=== PATIENT | female | born 1955 | race Caucasian/White ===

== ENCOUNTER → 2016-10-11 | Outpatient (CLI) | payer OTHER | LOC: HEART 5 14:48 | DX: J44.9 Chronic obstructive pulmonary disease, unspecified (principal) | CPT/HCPCS: 94060; 94729 ==

== ENCOUNTER 2020-10-23 12:49 | Emergency (ER) | payer MEDICARE, OTHER ==
[~2020-10-23 12:49] MED LIST: ASPIR 8181 MG PO; CATAPRES 0.1MG0.1 MG PO; ECOTRIN81 MG PO; HYDROCODON-ACE1 EAC2 PO; IBU400 MG PO; KEFLEX CAP 500500 MG PO; LIPITOR TAB 2020 MG PO; NORCO 5-325 TA1 EACH PO; PRINIVIL20 MG PO; TRAMADOL HCL50 MG PO
[2020-10-23 14:07] LABS: HEMOGLOBIN 16.9 gm/dl (12.3-15.3); RED BLOOD COUNT 4.98 M/UL (4.00-5.10); WHITE BLOOD COUNT 8.8 K/UL (4.5-11.0)
[2020-10-23 14:37] LABS: BUN/CREATININE RATIO 22 (0-10)
[2020-10-23] MEDS ORDERED: OMNICEF 300 MG300 MG PO (18:11)
[2020-10-23] MEDS ORDERED: PROTONIX40 MG PO (18:11)
[2020-10-23] MEDS ORDERED: ZOFRAN4 MG PO (18:11)
== END 2020-10-23 19:41 | disposition home or self-care (01) ==
LOC: ER1 12:49
PROVIDERS: Physician Assistant Medical
DX: K20.90 Esophagitis, unspecified without bleeding (principal); F15.10 Other stimulant abuse, uncomplicated; J44.9 Chronic obstructive pulmonary disease, unspecified; I10 Essential (primary) hypertension; Z86.73 Personal history of transient ischemic attack (TIA), and cerebral infarction without residual deficits; F17.210 Nicotine dependence, cigarettes, uncomplicated; Z20.822 Contact with and (suspected) exposure to COVID-19
CPT/HCPCS: 36600; 70450; 71045; 80053; 80307; 81001; 82803; 83605; 83690; 85025; 87086; 93005; 96374; 96375; 99285; C9113; J0696; J7030; Q9967; U0002

== ENCOUNTER 2020-11-11 12:45 | Emergency (ER) | payer MEDICARE, OTHER ==
[~2020-11-11 12:45] MED LIST changes: +OMNICEF 300 MG300 MG PO; +PROTONIX40 MG PO; +ZOFRAN4 MG PO
[2020-11-11] MEDS ORDERED: AUGMENTIN 875-1 EACH PO (14:37)
[2020-11-11] MEDS ORDERED: LISINOPRIL20 MG PO (14:37)
[2020-11-11] MEDS ORDERED: MOBIC15 MG PO (14:37)
== END 2020-11-11 14:58 | disposition home or self-care (01) ==
LOC: ER1 12:45
DX: L03.113 Cellulitis of right upper limb (principal); Z76.0 Encounter for issue of repeat prescription; I10 Essential (primary) hypertension; F17.200 Nicotine dependence, unspecified, uncomplicated; Z79.899 Other long term (current) drug therapy; Z23 Encounter for immunization
CPT/HCPCS: 73110; 73130; 90471; 90715; 99283

== ENCOUNTER 2021-05-14 20:55 | Emergency (ER) | payer MEDICARE, OTHER ==
[~2021-05-14 20:55] MED LIST changes: +AUGMENTIN 875-1 EACH PO; +LISINOPRIL20 MG PO; +MOBIC15 MG PO
[2021-05-14 22:12] LABS: HEMOGLOBIN 16.4 gm/dl (12.3-15.3); RED BLOOD COUNT 4.94 M/UL (4.00-5.10); WHITE BLOOD COUNT 6.3 K/UL (4.5-11.0)
[2021-05-14 22:45] LABS: BUN/CREATININE RATIO 16 (0-10)
[2021-05-15] MEDS ORDERED: PROTONIX40 MG PO (03:12)
[2021-05-15] MEDS ORDERED: ZOFRAN4 MG PO (03:12)
[2021-05-15] MEDS ORDERED: BENTYL 20MG TAB20 MG PO (03:12)
== END 2021-05-15 03:30 | disposition home or self-care (01) ==
LOC: ER1 20:55
PROVIDERS: Physician Assistant Medical
DX: R06.02 Shortness of breath (principal); B34.9 Viral infection, unspecified; R05.9 Cough, unspecified; R10.9 Unspecified abdominal pain; I10 Essential (primary) hypertension; Z20.822 Contact with and (suspected) exposure to COVID-19; J44.9 Chronic obstructive pulmonary disease, unspecified; Z79.899 Other long term (current) drug therapy; F17.210 Nicotine dependence, cigarettes, uncomplicated
CPT/HCPCS: 70450; 71045; 80053; 80307; 81001; 82550; 82553; 83605; 83690; 83874; 84484; 85025; 93005; 96374; 96375; 99285; J2270; J2405; J2765; J7030; U0002

== ENCOUNTER 2021-09-09 16:52 | Inpatient (IN) | payer MEDICARE, OTHER ==
[~2021-09-09] VITALS: Ht 162.6 cm; Wt 54.4 kg
[~2021-09-09 16:52] MED LIST changes: +BENTYL 20MG TAB20 MG PO
[2021-09-09 17:33] LABS: HEMOGLOBIN 16.3 gm/dl (12.3-15.3); RED BLOOD COUNT 4.92 M/UL (4.00-5.10)
[2021-09-09 18:29] LABS: BUN/CREATININE RATIO 34 (0-10)
[2021-09-10 02:22] LABS: WHITE BLOOD COUNT 7.5 K/UL (4.5-11.0)
[2021-09-10 02:43] LABS: HEMOGLOBIN 12.6 gm/dl (12.3-15.3); RED BLOOD COUNT 3.86 M/UL (4.00-5.10)
[2021-09-10 03:20] LABS: BUN/CREATININE RATIO 38 (0-10)
[2021-09-10 12:46] LABS: BUN/CREATININE RATIO 31 (0-10)
--- NOTE | 2021-09-10 15:40 | NUR ---
PATIENT HAD NEAR FALL AFTER BEING UP TO CHAIR WITH PT, SHE SAID PT SAID IT WAS OK IF SHE GETS UP. I INSTRUCTED THE PATIENT TO PLEASE NOT GET UP WITHOUT CALLING ME OR THE TECH, YELLOW SOCKS AND GOWN ON PT, SHE IS DOUBLE BED ALARMED AND VERBALIZED UNDERSTANDING TO CALL BEFORE SHE ATTEMPTS TO GET UP.
[2021-09-11 07:09] LABS: BUN/CREATININE RATIO 16 (0-10)
--- NOTE | 2021-09-11 09:40 | NUR ---
PATIENT WAS SEEN TO BE ANXIUOS, TRYING TO CLIMB OUT OF BED. CALL PLACED TO DR CHOWDHURY REGARDING PATIENT CONDTION .WHILE ON PHONE WITH PATIENT PULLED ALL TELMETRY OFF. NEW ORDER RECEIVED AND IMPLEMNTED. AFTER MEDICATION ADMINISTRAION, PATIENT WENT UNRESPONSIVE, [employer] SALES REPRESENTATIVE CALLED AND PATIENT TRANSFERRED TO UNIT.
[2021-09-11 11:16] LABS: HBSAG SCREEN Negative (Negative); HEP A AB, IGM Negative (Negative); HEP B CORE AB, IGM Negative (Negative); HEP C VIRUS AB <0.1 (0.0-0.9)
[2021-09-11 13:25] LABS: HEMOGLOBIN 13.1 gm/dl (12.3-15.3); RED BLOOD COUNT 4.05 M/UL (4.00-5.10)
[2021-09-11 13:26] LABS: WHITE BLOOD COUNT 13.8 K/UL (4.5-11.0)
[2021-09-11 13:45] LABS: BUN/CREATININE RATIO 23 (0-10)
[2021-09-12 04:46] LABS: RED BLOOD COUNT 4.34 M/UL (4.00-5.10)
[2021-09-12 04:47] LABS: WHITE BLOOD COUNT 6.5 K/UL (4.5-11.0)
[2021-09-12 05:10] LABS: BUN/CREATININE RATIO 18 (0-10)
[2021-09-13 04:38] LABS: WHITE BLOOD COUNT 7.4 K/UL (4.5-11.0)
[2021-09-13 04:41] LABS: HEMOGLOBIN 11.7 gm/dl (12.3-15.3); RED BLOOD COUNT 3.59 M/UL (4.00-5.10)
[2021-09-14 02:04] LABS: HEMOGLOBIN 11.4 gm/dl (12.3-15.3); RED BLOOD COUNT 3.47 M/UL (4.00-5.10); WHITE BLOOD COUNT 6.8 K/UL (4.5-11.0)
[2021-09-14 02:35] LABS: BUN/CREATININE RATIO 43 (0-10)
[2021-09-15 02:25] LABS: HEMOGLOBIN 11.3 gm/dl (12.3-15.3); RED BLOOD COUNT 3.44 M/UL (4.00-5.10); WHITE BLOOD COUNT 5.8 K/UL (4.5-11.0)
[2021-09-15 03:19] LABS: BUN/CREATININE RATIO 70 (0-10)
--- NOTE | 2021-09-15 09:03 | NUR ---
Patient put on sedation vacation and became increasingly aggitated. Patient was hypertensive ([id number]) and unable to follow commands. Dr. Calero has ordered precedex and stated to restart sedation medications until precedex drip arrives.
[2021-09-16 05:41] LABS: WHITE BLOOD COUNT 6.8 K/UL (4.5-11.0)
[2021-09-16 05:47] LABS: HEMOGLOBIN 13.3 gm/dl (12.3-15.3); RED BLOOD COUNT 4.05 M/UL (4.00-5.10)
[2021-09-16 05:52] LABS: BUN/CREATININE RATIO 102 (0-10)
[2021-09-16 16:38] LABS: BUN/CREATININE RATIO 102 (0-10)
[2021-09-17 05:05] LABS: HEMOGLOBIN 13.1 gm/dl (12.3-15.3); RED BLOOD COUNT 4.01 M/UL (4.00-5.10)
[2021-09-17 05:07] LABS: WHITE BLOOD COUNT 9.9 K/UL (4.5-11.0)
[2021-09-17 05:19] LABS: BUN/CREATININE RATIO 95 (0-10)
[2021-09-18 03:53] LABS: HEMOGLOBIN 12.6 gm/dl (12.3-15.3); RED BLOOD COUNT 3.83 M/UL (4.00-5.10)
[2021-09-18 04:08] LABS: BUN/CREATININE RATIO 77 (0-10)
[2021-09-19 04:42] LABS: HEMOGLOBIN 11.2 gm/dl (12.3-15.3); WHITE BLOOD COUNT 10.1 K/UL (4.5-11.0)
[2021-09-19 04:43] LABS: RED BLOOD COUNT 3.39 M/UL (4.00-5.10)
[2021-09-19 05:02] LABS: BUN/CREATININE RATIO 76 (0-10)
[2021-09-20 02:48] LABS: HEMOGLOBIN 13.1 gm/dl (12.3-15.3); WHITE BLOOD COUNT 12.2 K/UL (4.5-11.0)
[2021-09-20 02:55] LABS: RED BLOOD COUNT 3.96 M/UL (4.00-5.10)
[2021-09-20 02:57] LABS: BUN/CREATININE RATIO 53 (0-10)
[2021-09-21 04:51] LABS: HEMOGLOBIN 11.2 gm/dl (12.3-15.3); WHITE BLOOD COUNT 9.3 K/UL (4.5-11.0)
[2021-09-21 04:54] LABS: RED BLOOD COUNT 3.42 M/UL (4.00-5.10)
[2021-09-21 05:24] LABS: BUN/CREATININE RATIO 45 (0-10)
[2021-09-22 03:30] LABS: HEMOGLOBIN 10.3 gm/dl (12.3-15.3); RED BLOOD COUNT 3.12 M/UL (4.00-5.10); WHITE BLOOD COUNT 7.1 K/UL (4.5-11.0)
[2021-09-22 04:19] LABS: BUN/CREATININE RATIO 38 (0-10)
[2021-09-25 19:44] LABS: BUN/CREATININE RATIO 18 (0-10)
[2021-09-26 06:19] LABS: RED BLOOD COUNT 3.77 M/UL (4.00-5.10); WHITE BLOOD COUNT 6.8 K/UL (4.5-11.0)
[2021-09-26 06:29] LABS: HEMOGLOBIN 12.4 gm/dl (12.3-15.3)
[2021-09-26 06:47] LABS: BUN/CREATININE RATIO 17 (0-10)
--- NOTE | 2021-09-26 13:51 | NUR ---
[address] FUCHS OF PT C/O CP. GOT EKG, CARDIACS, GAVE THE PATIENT HER 1400 HYDRALIZINE SCHEDULED AND HER PRN CLONIDINE, GOT AN ORDER FOR SUBLINGUAL NITRO AND GAVE ONE TAB. PT STATED AT 1345 AFTER ALL THESE INTERVENTIONS COMPLETED THAT HER CHEST PAIN WAS RESOLVED. EKG NORMAL, GIVEN TO DR. FUCHS TO REVIEW.
[2021-09-26] MEDS ORDERED: IPRAT-ALBUT 0.5-3 ML NEB (19:17)
[2021-09-27] MEDS ORDERED: ADVAIR HFA 45/212 GM INH (15:48)
[2021-09-27] MEDS ORDERED: POLYETHYLENE GL17 GM PO (15:48)
[2021-09-27] MEDS ORDERED: HYGROTON TAB 2525 MG PO (15:48)
[2021-09-27] MEDS ORDERED: COZAAR50 MG PO (15:48)
--- NOTE | 2021-09-28 00:13 | NUR ---
APPROX 2215 WHEN ENTERING ROOM FOR [facility] PT HAD BOTH LEGS HANGING TO RIGHT SIDE OF BED AND HEAD WAS MORE OF LEFT SIDE OF BED ONTOP OF THE RAILING. GOT PT IN MORE COMFORTABLE POSITION. CHANGED BED ALARM TO MORE SENSITIVE SETTINGS AND PLACED RIGHT SIDE BOTTOM RAILING UP. PT KNOWS NAME AND , LOCATION. DOOR ALSO LEFT JAIL. WILL CONTINUE TO MONITOR PT. BED IS IN LOWEST POSITON. CALL LIGHT PLACE ON PT ABDOMEN.
--- NOTE | 2021-09-29 15:27 | NUR ---
report given to [facility] admitting nurse
== END 2021-09-29 16:56 | DRG 917 ==
LOC: ER1 16:52 → CDU 19:55 → M/S 19:55 → CCU 09-11 10:13 → M/S 09-11 11:04 → CCU 09-11 11:04 → M/S 09-21 11:42
PROVIDERS: Internal Medicine; Internal Medicine Pulmonary Disease; Preventive Medicine Occupational Medicine; ADMIT Internal Medicine
PROC: 04HY32Z Insertion of Monitoring Device into Lower Artery, Percutaneous Approach (ICD-10-PCS; principal; 2021-09-11)
PROC: B44LZZZ Ultrasonography of Femoral Artery (ICD-10-PCS; 2021-09-11)
PROC: 0BH17EZ Insertion of Endotracheal Airway into Trachea, Via Natural or Artificial Opening (ICD-10-PCS; 2021-09-11)
PROC: 5A1955Z Respiratory Ventilation, Greater than 96 Consecutive Hours (ICD-10-PCS; 2021-09-11)
PROC: 02HV33Z Insertion of Infusion Device into Superior Vena Cava, Percutaneous Approach (ICD-10-PCS; 2021-09-11)
PROC: B548ZZA Ultrasonography of Superior Vena Cava, Guidance (ICD-10-PCS; 2021-09-11)
PROC: 5A09357 Assistance with Respiratory Ventilation, Less than 24 Consecutive Hours, Continuous Positive Airway Pressure (ICD-10-PCS; 2021-09-11)
PROC: 3E043XZ Introduction of Vasopressor into Central Vein, Percutaneous Approach (ICD-10-PCS; 2021-09-11)
PROC: 0BH17EZ Insertion of Endotracheal Airway into Trachea, Via Natural or Artificial Opening (ICD-10-PCS; 2021-09-12)
PROC: 4A00X4Z Measurement of Central Nervous Electrical Activity, External Approach (ICD-10-PCS; 2021-09-16)
PROC: 5A0935A Assistance with Respiratory Ventilation, Less than 24 Consecutive Hours, High Flow/Velocity Cannula (ICD-10-PCS; 2021-09-18)
DX: T40.2X1A Poisoning by other opioids, accidental (unintentional), initial encounter (principal); J69.0 Pneumonitis due to inhalation of food and vomit; Z20.822 Contact with and (suspected) exposure to COVID-19; J96.21 Acute and chronic respiratory failure with hypoxia; R57.0 Cardiogenic shock; G92.8 Other toxic encephalopathy; A41.9 Sepsis, unspecified organism; R65.20 Severe sepsis without septic shock; I21.A1 Myocardial infarction type 2; J18.9 Pneumonia, unspecified organism; M62.82 Rhabdomyolysis; I50.32 Chronic diastolic (congestive) heart failure; J90 Pleural effusion, not elsewhere classified; E87.0 Hyperosmolality and hypernatremia; J44.1 Chronic obstructive pulmonary disease with (acute) exacerbation; F11.121 Opioid abuse with intoxication delirium; J44.0 Chronic obstructive pulmonary disease with (acute) lower respiratory infection; I11.0 Hypertensive heart disease with heart failure; E88.09 Other disorders of plasma-protein metabolism, not elsewhere classified; R73.9 Hyperglycemia, unspecified; F17.210 Nicotine dependence, cigarettes, uncomplicated; F19.10 Other psychoactive substance abuse, uncomplicated; R74.01 Elevation of levels of liver transaminase levels; I08.1 Rheumatic disorders of both mitral and tricuspid valves; H53.8 Other visual disturbances; F12.10 Cannabis abuse, uncomplicated; W18.30XA Fall on same level, unspecified, initial encounter; F41.9 Anxiety disorder, unspecified; E87.6 Hypokalemia; T43.621A Poisoning by amphetamines, accidental (unintentional), initial encounter; I95.9 Hypotension, unspecified; R00.1 Bradycardia, unspecified; Z99.81 Dependence on supplemental oxygen; Y92.009 Unspecified place in unspecified non-institutional (private) residence as the place of occurrence of the external cause; Z86.73 Personal history of transient ischemic attack (TIA), and cerebral infarction without residual deficits; Z82.49 Family history of ischemic heart disease and other diseases of the circulatory system; Z91.041 Radiographic dye allergy status
CPT/HCPCS: ECHO; 0240U; 31500; 36415; 36600; 70450; 71045; 71250; 72170; 73030; 80048; 80053; 80061; 80074; 80202; 80307; 81001; 82009; 82140; 82533; 82550; 82553; 82607; 82746; 82803; 82962; 83036; 83605; 83615; 83690; 83735; 83874; 83880; 84100; 84132; 84439; 84443; 84478; 84484; 85025; 85027; 85379; 85384; 85610; 85652; 85730; 86140; 87040; 87070; 87077; 87081; 87205; 92526; 92610; 93005; 93306; 93970; 94002; 94003; 94640; 94660; 94760; 95819; 96372; 96374; 96375; 97110; 97110-GP-CQ; 97116-GP-CQ; 97161; 97164; 97166; 97168; 97530; 97530-GP-CQ; 97535; 99285; A6212; C1751; C9113; G0378; G0480; J0171; J0360; J0461; J0692; J1205; J1610; J1650; J1720; J1940; J2060; J2250; J2704; J2920; J3010; J3370; J3475; J3480; J7030; J7040; J7070; J7120; U0002

== ENCOUNTER 2022-01-14 01:42 | Emergency (ER) | payer MEDICARE ==
[~2022-01-14 01:42] MED LIST changes: +ADVAIR HFA 45/212 GM INH; +COZAAR50 MG PO; +HYGROTON TAB 2525 MG PO; +IPRAT-ALBUT 0.5-3 ML NEB; +POLYETHYLENE GL17 GM PO
[2022-01-14] MEDS ORDERED: DELSYM30 MG/5 ML PO (03:58)
[2022-01-14] MEDS ORDERED: PAXLOVID 300-11 EACH PO (03:58)
== END 2022-01-14 04:34 | disposition home or self-care (01) ==
LOC: ER1 01:42
DX: U07.1 COVID-19 (principal); J44.9 Chronic obstructive pulmonary disease, unspecified; I10 Essential (primary) hypertension; F17.210 Nicotine dependence, cigarettes, uncomplicated; R40.2410 Glasgow coma scale score 13-15, unspecified time
CPT/HCPCS: 0240U; 99283

== ENCOUNTER 2022-01-25 20:42 | Inpatient (IN) | payer MEDICARE, OTHER ==
[~2022-01-25] VITALS: Ht 160 cm; Wt 49.4 kg
[~2022-01-25 20:42] MED LIST changes: +DELSYM30 MG/5 ML PO; +PAXLOVID 300-11 EACH PO
[2022-01-25 21:18] LABS: HEMOGLOBIN 14.8 gm/dl (12.3-15.3); RED BLOOD COUNT 4.51 M/UL (4.00-5.10); WHITE BLOOD COUNT 8.6 K/UL (4.5-11.0)
[2022-01-25 22:29] LABS: BUN/CREATININE RATIO 16 (0-10)
[2022-01-26 05:46] LABS: HEMOGLOBIN 12.7 gm/dl (12.3-15.3); RED BLOOD COUNT 3.89 M/UL (4.00-5.10); WHITE BLOOD COUNT 5.7 K/UL (4.5-11.0)
[2022-01-26] MEDS ORDERED: COZAAR50 MG PO (10:05)
[2022-01-26] MEDS ORDERED: CHLORTHALIDONE50 MG PO (10:06)
[2022-01-27 06:27] LABS: HEMOGLOBIN 11.3 gm/dl (12.3-15.3); WHITE BLOOD COUNT 4.6 K/UL (4.5-11.0)
[2022-01-27 06:30] LABS: RED BLOOD COUNT 3.49 M/UL (4.00-5.10)
[2022-01-27 06:54] LABS: BUN/CREATININE RATIO 36 (0-10)
[2022-01-28 06:31] LABS: HEMOGLOBIN 11.6 gm/dl (12.3-15.3); RED BLOOD COUNT 3.55 M/UL (4.00-5.10)
[2022-01-28 06:56] LABS: BUN/CREATININE RATIO 33 (0-10)
[2022-01-28] MEDS ORDERED: COREG 25MG TAB25 MG PO (12:24)
[2022-01-28] MEDS ORDERED: ASPIRIN EC81 MG PO (12:25)
[2022-01-28] MEDS ORDERED: LIPITOR TAB 2020 MG PO (12:25)
[2022-01-28] MEDS ORDERED: PROAIR HFA8.5 GM INH (12:25)
== END 2022-01-28 17:05 | disposition home or self-care (01) | DRG 177 ==
LOC: ER1 20:42 → CDU 23:14 → MED SURG 4 01-26 14:50
PROVIDERS: Emergency Medicine; Internal Medicine; ADMIT Internal Medicine
PROC: 8E0ZXY6 Isolation (ICD-10-PCS; principal; 2022-01-26)
DX: U07.1 COVID-19 (principal); G92.8 Other toxic encephalopathy; N17.9 Acute kidney failure, unspecified; N39.0 Urinary tract infection, site not specified; J44.9 Chronic obstructive pulmonary disease, unspecified; I10 Essential (primary) hypertension; E87.6 Hypokalemia; T43.625A Adverse effect of amphetamines, initial encounter; Z86.73 Personal history of transient ischemic attack (TIA), and cerebral infarction without residual deficits; F17.200 Nicotine dependence, unspecified, uncomplicated; F19.10 Other psychoactive substance abuse, uncomplicated; R47.81 Slurred speech; Z82.49 Family history of ischemic heart disease and other diseases of the circulatory system; Z91.048 Other nonmedicinal substance allergy status; Z79.899 Other long term (current) drug therapy
CPT/HCPCS: 36600; 51701; 70450; 71045; 80048; 80053; 80307; 81001; 82570; 82803; 83036; 83735; 83880; 84156; 84439; 84443; 84484; 85025; 86140; 87086; 93005; 94640; 94760; 96372; 96374; 96376; 99285; G0378; G0480; J0696; J1644; J3475; J3480; P9047; U0002